=== PATIENT | female | born 1940 | race Hispanic/Latino ===

== ENCOUNTER 2018-08-18 06:11 | Day surgery (SDC) | payer OTHER ==
[2018-08-15 10:10] VITALS: BP 155/68
[~2018-08-18] VITALS: Ht 157.5 cm; Wt 88.1 kg
[2018-08-18] VITALS (14 sets, daily range): BP systolic 131–159; BP diastolic 58–71
[~2018-08-18 06:11] MED LIST: ACET-2743 PO; AMOX250C4 PO; CALC-960 PO; CELE-84 PO; HYDR-4154 PO; MELA1TAB17 PO; METO-391 PO; METO25TA6 PO; PRAV10TA39 PO; TRAM50TA4 PO
[2018-08-18] MEDS ORDERED: BUPIVACAINE/EPI/PF 0.25% 30ML VIAL IJ ONE (07:44)
[2018-08-18] MEDS ORDERED: LACTATED RINGERS 1000ML 1,000 ML IV ONE (07:56)
[2018-08-18] MEDS ORDERED: DEXAMETHASONE SOD PHOSPHATE 10MG/ML 1ML VIAL ONE (07:57)
[2018-08-18] MEDS ORDERED: ONDANSETRON HCL 4 MG/2 ML VIAL ONE (07:57)
[2018-08-18] MEDS ORDERED: PROPOFOL 10 MG/ML 20ML VIAL IV ONE (07:57)
[2018-08-18] MEDS ORDERED: FENTANYL CITRATE PF 50 MCG/1 ML 2ML VIAL ONE (07:57)
[2018-08-18] MEDS ORDERED: LIDOCAINE PF 2% 5ML ABBOJECT ONE (07:57)
[2018-08-18] MEDS ORDERED: MIDAZOLAM HCL 1 MG/ML 2ML VIAL ONE (07:57)
[2018-08-18] MEDS: CEFAZOLIN SODIUM 1 GM VIAL ONE ×2 (08:01→08:30)
[2018-08-18] MEDS ORDERED: MORPHINE SULFATE 4 MG/1ML SYG ONE (09:23)
[2018-08-18] MEDS ORDERED: MORPHINE SULFATE 2 MG/ML 1ML SYG ONE (09:35)
== END 2018-08-18 11:15 | disposition home or self-care (01) ==
LOC: DAH 06:11
PROVIDERS: ATTEND Orthopaedic Surgery
DX: M23.221 Derangement of posterior horn of medial meniscus due to old tear or injury, right knee (principal); M94.261 Chondromalacia, right knee; I10 Essential (primary) hypertension; M17.11 Unilateral primary osteoarthritis, right knee; F15.90 Other stimulant use, unspecified, uncomplicated; Z90.3 Acquired absence of stomach [part of]; Z85.028 Personal history of other malignant neoplasm of stomach; Z79.899 Other long term (current) drug therapy; Z79.2 Long term (current) use of antibiotics; Z79.1 Long term (current) use of non-steroidal anti-inflammatories (NSAID); Z83.3 Family history of diabetes mellitus; Z82.49 Family history of ischemic heart disease and other diseases of the circulatory system; Z82.3 Family history of stroke
CPT/HCPCS: 29879; 29881; 93005; A4248; A4606; A4649 ×3; A4930 ×2; A6223; J0690; J1100; J2001; J2250; J2270; J2405; J2704; J3010; J3490; J7120 ×2

== ENCOUNTER 2018-12-15 06:47 | Day surgery (SDC) | payer OTHER ==
[2018-12-09 12:19] VITALS: BP 146/70
[~2018-12-15] VITALS: Ht 160 cm; Wt 85.7 kg
[2018-12-15] VITALS (17 sets, daily range): BP systolic 123–177; BP diastolic 59–93
[~2018-12-15 06:47] MED LIST changes: -AMOX250C4 PO; +ASPI-555 PO; -CELE-84 PO; +GLUC-145 PO; +LEG CRAMPS PO; -MELA1TAB17 PO; -METO25TA6 PO
[2018-12-15] MEDS ORDERED: BUPIVACAINE/EPI/PF 0.25% 50 ML VIAL ONE (07:27)
[2018-12-15] MEDS ORDERED: LACTATED RINGERS 1000ML 1,000 ML IV ONE (07:38)
--- NOTE | 2018-12-15 07:54 | NUR ---
POTENTIAL FOR INFECTION: LEFT KNEE / LEG CLIPPED AND WIPED WITH MEGHAN PER DEE MARR
[2018-12-15] MEDS: CEFAZOLIN SODIUM 1 GM VIAL IVP SCH ×2 (08:00→08:45)
[2018-12-15] MEDS ORDERED: ONDANSETRON HCL MDV 20ML 2 MG/ML VIAL ONE (08:05)
[2018-12-15] MEDS ORDERED: PROPOFOL 10 MG/ML 20ML VIAL IV ONE (08:14)
[2018-12-15] MEDS ORDERED: ONDANSETRON HCL 4 MG/2 ML VIAL ONE (08:14)
[2018-12-15] MEDS ORDERED: DEXAMETHASONE SOD PHOSPHATE 10MG/ML 1ML VIAL ONE (08:14)
[2018-12-15] MEDS ORDERED: LIDOCAINE PF 2% 5ML ABBOJECT ONE (08:14)
[2018-12-15] MEDS ORDERED: MIDAZOLAM HCL 1 MG/ML 2ML VIAL ONE (08:15)
[2018-12-15] MEDS ORDERED: FENTANYL CITRATE PF 50 MCG/1 ML 2ML VIAL ONE (08:15)
[2018-12-15] MEDS ORDERED: ROCURONIUM 10MG/1ML SYR 10 MG/ML ML ONE (08:43)
[2018-12-15] MEDS ORDERED: ONDANSETRON HCL 4 MG/2 ML VIAL IVP PRN (09:15)
[2018-12-15] MEDS ORDERED: NALOXONE HCL 0.4 MG/1 ML ML IVP PRN (09:15)
[2018-12-15] MEDS ORDERED: FENTANYL CITRATE PF 50 MCG/1 ML 2ML VIAL IVP PRN (09:15)
[2018-12-15] MEDS ORDERED: RACEPINEPHRINE HCL 2.25% 0.5 ML NEB SOLN NEB PRN (09:15)
[2018-12-15] MEDS ORDERED: PROMETHAZINE HCL 25 MG/ML 1ML AMPULE IM PRN (09:15)
[2018-12-15] MEDS ORDERED: METOCLOPRAMIDE 10 MG/2 ML VIAL IVP PRN (09:15)
[2018-12-15] MEDS ORDERED: IPRATROPIUM/ALBUTEROL SULFATE 3 ML SOLUTION IH PRN (09:15)
[2018-12-15] MEDS ORDERED: KETOROLAC TROMETHAMINE 30MG/ML IVP PRN (09:15)
[2018-12-15] MEDS ORDERED: MORPHINE SULFATE 5 MG/ML VIAL IVP PRN (09:15)
[2018-12-15] MEDS ORDERED: GLYCOPYRROLATE 1 MG/5 ML SYRINGE ONE ×2 (09:24→09:25)
[2018-12-15] MEDS ORDERED: NEOSTIGMINE 5MG/5ML SYR IV ONE (09:24)
[2018-12-15] MEDS ORDERED: MORPHINE SULFATE 2 MG/ML 1ML SYG ONE ×2 (09:50→09:59)
[2018-12-15] MEDS: MEPERIDINE-PF 25 MG/ML SYG IVP PRN ×2 (10:12→10:44)
--- NOTE | 2018-12-15 10:20 | NUR ---
NOTIFIED KELLY PADRON AND KELLY MCGRAW REGARDING PAIN. OK TO TRANSFER, V/S STABLE, PT APPEARS MORE COMFORTABLE. ONGOING REASSURANCE. Addendum: 12/15/18 at 1035 by ROCHELLE CORONEL RN RN Amended: Links added.
--- NOTE | 2018-12-15 11:13 | NUR ---
ASSESSMENT RECEIVED PT FROM Day CORONEL RN. PT WITH ROEL WRAP TO LEFT KNEE . DRY AND INTACT. ICE PACK APPLIED. BOTH DAUGHTERS AT BEDSIDE. DAUGHTERS STATE PT HAS WALKER AND WHEELCHAIR AT HOME.
--- NOTE | 2018-12-15 11:55 | NUR ---
DISCHARGE ORAL AND WRITTEN DISCHARGE INSTRUCTIONS GIVEN TO PT AND PTS DAUGHTER. PRESCRIPTION GIVEN TO PTS DAUGHTER FOR MOTRIN AND INSTRUCTED PT AND DAUGHTER THAT PT IS ABLE TO USE HOME TRAMADOL FOR PAIN CONTROL. BOTH VERBALIZED UNDERSTANDING. NO OTHER QUESTIONS AT THIS TIME.
== END 2018-12-15 12:10 | disposition home or self-care (01) ==
LOC: DAH 06:47
PROVIDERS: ATTEND Orthopaedic Surgery
DX: M23.222 Derangement of posterior horn of medial meniscus due to old tear or injury, left knee (principal); M23.252 Derangement of posterior horn of lateral meniscus due to old tear or injury, left knee; M94.262 Chondromalacia, left knee; Z68.38 Body mass index [BMI] 38.0-38.9, adult; J44.9 Chronic obstructive pulmonary disease, unspecified; E78.00 Pure hypercholesterolemia, unspecified; I10 Essential (primary) hypertension; Z98.890 Other specified postprocedural states; Z79.899 Other long term (current) drug therapy; E66.3 Overweight; Z85.028 Personal history of other malignant neoplasm of stomach
CPT/HCPCS: 29880; 96374; A4218; A4248; A4606; A4649 ×3; A4930 ×2; A6223; J0690; J1100; J2001; J2175 ×2; J2250; J2405 ×2; J2550; J2704; J2710; J3010; J3490 ×2; J7120 ×2

== ENCOUNTER → 2019-06-14 | Outpatient (CLI) | payer OTHER | END | disposition home or self-care (01) | LOC: RAH 09:34 | PROVIDERS: ATTEND Urology | DX: N28.1 Cyst of kidney, acquired (principal); N32.89 Other specified disorders of bladder | CPT/HCPCS: 76770 ==

== ENCOUNTER → 2020-04-01 | Outpatient (CLI) | payer OTHER | END | disposition home or self-care (01) | LOC: RAH 10:42 | PROVIDERS: ATTEND Urology | DX: N28.1 Cyst of kidney, acquired (principal); E04.9 Nontoxic goiter, unspecified | CPT/HCPCS: 76536; 76770 ==

== ENCOUNTER → 2023-11-04 | Outpatient (CLI) | payer OTHER ==
[~2023-11-04] MED LIST changes: -ASPI-555 PO; +ASPI-556 PO; +IOHEXOL 350 MG/ML 100ML INFUS..BTL IV ONE; +METOPROLOL TARTRATE 1 MG/ML 5ML VIAL IV ONE
== END | disposition home or self-care (01) ==
LOC: RAH 10:05
PROVIDERS: ATTEND Internal Medicine Cardiovascular Disease
DX: R06.09 Other forms of dyspnea (principal); M47.815 Spondylosis without myelopathy or radiculopathy, thoracolumbar region
CPT/HCPCS: 75574; J3490; Q9967

== ENCOUNTER → 2023-12-28 | Outpatient (CLI) | payer OTHER ==
[~2023-12-28] MED LIST changes: -HYDR-4154 PO; +HYDR50TA37 PO; -IOHEXOL 350 MG/ML 100ML INFUS..BTL IV ONE; -METOPROLOL TARTRATE 1 MG/ML 5ML VIAL IV ONE
[2023-12-28 12:44] LABS: ALBUMIN 3.9 g/dL (3.5-5.0); BILIRUBIN,TOTAL 0.5 mg/dL (0.2-1.0); CREATININE 0.8 mg/dL (0.5-1.5); POTASSIUM 4.2 mmol/L (3.5-5.1); TOTAL PROTEIN, SERUM 7.6 g/dL (6.0-8.3)
== END | disposition home or self-care (01) ==
LOC: LAB 09:00
PROVIDERS: ATTEND Internal Medicine Cardiovascular Disease
DX: I10 Essential (primary) hypertension (principal); R00.0 Tachycardia, unspecified; R94.39 Abnormal result of other cardiovascular function study
CPT/HCPCS: 36415; 80053; 80061